=== PATIENT | female | born 1955 | race Caucasian/White ===

== ENCOUNTER 2017-05-06 16:46 | Inpatient (IN) | payer BC ==
[~2017-05-06] VITALS: Ht 157.5 cm; Wt 56.8 kg
[~2017-05-06 16:46] MED LIST: AMIO100T4 PO; ANAS1TAB PO; BENA40TA54 PO; CEPH500C PO; LEVO50TA64 PO; METO-448 PO; MIRT7.5T8 PO; SERT25TA83 PO; SIMV40TA2 PO; WARF2TAB PO
[2017-05-06] MEDS ORDERED: SODIUM CHLORIDE 0.9% 1L BAG IV* STA (20:15)
[2017-05-06] MEDS ORDERED: AZTREONAM 1 GM/NS (PMX) 50 ML IVPB STA (20:15)
[2017-05-06] MEDS ORDERED: VANCOMYCIN 1 GM (PMX) 250 ML IVPB ONE (20:30)
--- NOTE | 2017-05-06 21:18 | RADRPT ---
PROCEDURE: XR Chest. CLINICAL INDICATION: Chest pain TECHNIQUE: Single frontal view of the chest was obtained. COMPARISON: CR CHEST 12/15/2015 FINDINGS: The heart is within normal limits. The thoracic aorta is calcified. There are surgical clips in the right axilla. The lungs are clear. There is no pleural effusion or pneumothorax. RPTAT: AA IMPRESSION: No acute disease. Calcified aorta consistent with atherosclerotic disease. .Lorenzo Kinsey MD, MD Date Time Electronically viewed and signed by .Lorenzo Kinsey MD, on 05/06/2017 21:17 .S/
[2017-05-06] MEDS ORDERED: ACET-141 PO (21:46)
[2017-05-06] MEDS ORDERED: MIRT15TA5 PO (21:46)
[2017-05-06] MEDS ORDERED: AMIO200T2 PO (21:46)
[2017-05-06] MEDS ORDERED: LEVO75TA5 PO (21:47)
[2017-05-06 22:28] LABS: BASOPHIL # 0.1 10^3/ul (0.0-0.1); BASOPHILS % 0.6 % (0.0-2.0); EOSINOPHILS % 0.1 % (0.0-7.0); HEMATOCRIT 36.4 % (37.0-47.0); LYMPHOCYTES # 0.9 10^3/ul (0.8-2.9); LYMPHOCYTES % 10.7 % (15.0-51.0); MEAN CORPUSCULAR HEMOGLOBIN 28.2 pg (29.0-33.0); MEAN CORPUSCULAR VOLUME 85.6 fl (82.0-101.0); MEAN PLATELET VOLUME 11.7 fl (7.4-10.4); MONOCYTE # 0.8 10^3/ul (0.3-0.9); MONOCYTES % 8.7 % (0.0-11.0); NEUTROPHIL # 6.9 10^3/ul (1.6-7.5); NEUTROPHILS % 79.3 % (39.0-77.0); RED BLOOD COUNT 4.25 10^6/ul (4.20-5.40); RED CELL DISTRIBUTION WIDTH 13.2 % (11.5-14.5); WHITE BLOOD COUNT 8.7 10^3/ul (4.8-10.8)
[2017-05-06 22:31] LABS: POSITIVE DIFF @See below
[2017-05-06 22:56] LABS: TROPONIN-I 0.022 ng/ml (0.00-0.12)
[2017-05-06 23:22] LABS: BILIRUBIN,INDIRECT 0.3 mg/dl (0-1.1); BILIRUBIN,TOTAL 0.3 mg/dl (0.2-1.3); CALCIUM 9.3 mg/dl (8.4-10.2); CREATININE 0.52 mg/dl (0.44-1.00); POTASSIUM 4.3 mmol/L (3.5-5.1)
[2017-05-06 23:28] LABS: PLATELET COUNT 227 10^3/UL (140-415)
[2017-05-06] MEDS ORDERED: ACETAMINOPHEN 325 MG TAB PO PRN (23:30)
[2017-05-06] MEDS ORDERED: ONDANSETRON 4 MG INJ IV PRN (23:30)
[2017-05-06 23:31] LABS: INR 1.76; PROTIME 20.7 Sec (12.2-14.2); PT RATIO 1.6
--- NOTE | 2017-05-06 23:51 | ERD ---
ER Documentation Chief Complaint Chief Complaint ap with n/v and constipation; htn; symptoms x 1 week HPI Patient is a 61-year-old female with breast cancer and previous cardiac arrest who presents with high blood pressure. The patient has been told she has a UTI and she gets frequent UTIs. She has had constipation for the past 6-7 days. She has had decreased intake by mouth and vomiting. She feels "dehydrated and pale". She feels weak all over. Upon review of old medical records this is the patient's 10th visit to the ER since 2009. Her primary doctor is Dr. Garduno. ROS All systems reviewed and are negative except as per history of present illness. Medications Home Meds Active Scripts Metoprolol Tartrate* (Lopressor*) 25 Mg Tab, 12.5 MG PO BID, #60 TAB Prov:COCO COBOS MD 12/16/15 Reported Medications Levothyroxine Sodium* (Levothyroxine Sodium*) 75 Mcg Tablet, 75 MCG PO BEFORE BREAKFAST, #30 TAB 05/06/17 Acetaminophen* (Acetaminophen*) 500 MG Extra Strength Tablet, 500 MG PO Q4H Y for PAIN AND OR ELEVATED TEMP, TAB 05/06/17 Mirtazapine* (Mirtazapine*) 15 Mg Tablet, 15 MG PO HS, TAB 05/06/17 Amiodarone Hcl* (Amiodarone Hcl*) 200 Mg Tablet, 100 MG PO QAM, #30 TAB TAKE 1/2 TABLET PO DAILY 05/06/17 Warfarin Sodium* (Coumadin*) 2 Mg Tablet, 2 MG PO QAM, TAB 12/15/15 Simvastatin* (Zocor*) 40 Mg Tablet, 40 MG PO QHS, #30 TAB 12/15/15 Sertraline Hcl* (Sertraline Hcl*) 25 Mg Tablet, 25 MG PO QHS 07/18/13 Anastrozole* (Arimidex*) 1 Mg Tablet, 1 MG PO DAILY 07/18/13 Benazepril Hcl* (Lotensin*) 40 Mg Tablet, 40 MG PO DAILY 07/18/13 Discontinued Reported Medications Mirtazapine* (Mirtazapine*) 7.5 Mg Tablet, 7.5 MG PO HS, TAB 12/15/15 Levothyroxine Sodium (Levothroid) 50 Mcg Tablet, 50 MCG PO AC BREAKFAST 07/18/13 Discontinued Scripts Cephalexin* (Cephalexin*) 500 Mg Capsule, 500 MG PO Q8, #21 CAP Prov:COCO COBOS MD 12/16/15 Amiodarone Hcl* (Amiodarone Hcl*) 100 Mg Tablet, 100 MG PO DAILY, #30 TAB Prov:COCO COBOS MD 12/16/15 Allergies Allergies: Coded Allergies: Penicillins (Unverified Allergy, Mild, RASH HIVES, 05/06/17) PMhx/Soc History of Surgery: Yes (right Mastectomy; Trache, G-Tube) Anesthesia Reaction: No Hx Neurological Disorder: No Hx Respiratory Disorders: No Hx Cardiac Disorders: Yes (Irregular Heart Rate) Hx Psychiatric Problems: Yes Hx Miscellaneous Medical Probl: Yes (cardiac arrest) Hx Alcohol Use: No Hx Substance Use: No Hx Tobacco Use: No Smoking Status: Never smoker Physical Exam Vitals Vital Signs Date Time Temp Pulse Resp B/P Pulse Ox O2 Delivery O2 Flow Rate FiO2 05/06/17 22:45 60 180/73 98 Room Air 05/06/17 17:14 99.0 56 18 208/87 98 Physical Exam Const: [] Head: Atraumatic Eyes: Normal Conjunctiva ENT: Normal External Ears, Nose and Mouth. Neck: Full range of motion..~ No meningismus. Resp: Clear to auscultation bilaterally Cardio: Regular rate and rhythm, no murmurs Abd: Soft, non tender, non distended. Normal bowel sounds Skin: No petechiae or rashes Back: No midline or flank tenderness Ext: No cyanosis, or edema Neur: Awake and alert Psych: Normal Mood and Affect Result Diagram: 05/06/17221305/06/172213 Results 24 hrs Laboratory Tests Test 05/06/17 22:14 05/06/17 22:30 White Blood Count 8.710^3/ul Red Blood Count 4.2510^6/ul Hemoglobin 12.0g/dl Hematocrit 36.4% Mean Corpuscular Volume 85.6fl Mean Corpuscular Hemoglobin 28.2pg Mean Corpuscular Hemoglobin Concent 33.0g/dl Red Cell Distribution Width 13.2% Platelet Count 50817^3/UL Mean Platelet Volume 11.7fl Neutrophils % 79.3% Lymphocytes % 10.7% Monocytes % 8.7% Eosinophils % 0.1% Basophils % 0.6% Nucleated Red Blood Cells % 0.0/100WBC Neutrophils # 6.910^3/ul Lymphocytes # 0.910^3/ul Monocytes # 0.810^3/ul Eosinophils # 0.010^3/ul Basophils # 0.110^3/ul Nucleated Red Blood Cells # 0.010^3/ul Sodium Level 142mmol/L Potassium Level 4.3mmol/L Chloride Level 102mmol/L Carbon Dioxide Level 28mmol/L Anion Gap 16 Blood Urea Nitrogen 8mg/dl Creatinine 0.52mg/dl Glucose Level 119mg/dl Lactic Acid Level 2.0mmol/L Calcium Level 9.3mg/dl Total Bilirubin 0.3mg/dl Direct Bilirubin 0.00mg/dl Indirect Bilirubin 0.3mg/dl Aspartate Amino Transf (AST/SGOT) 31IU/L Alanine Aminotransferase (ALT/SGPT) 16IU/L Alkaline Phosphatase 101IU/L Troponin I 0.022ng/ml Total Protein 8.0g/dl Albumin 4.0g/dl Globulin 4.00g/dl Albumin/Globulin Ratio 1.00 Prothrombin Time 20.7Sec Prothrombin Time Ratio 1.6 INR International Normalized Ratio 1.76 Activated Partial Thromboplast Time 33.0Sec Current Medications Medications (Trade) Dose Ordered Sig/Barb Route PRN Reason Start Time Stop Time Status Last Admin Dose Admin Sodium Chloride 1760 ml 1,760 ml BOLUS OVER 2 HOURS STAT IV* 05/06/17 20:15 05/06/17 20:16 DC 05/06/17 20:15 Vancomycin HCl 250 ml @ 125 mls/hr ONCE ONCE IVPB 05/06/17 20:30 05/06/17 22:29 DC Aztreonam (Azactam 1gm/NS (Pmx)) 50 ml @ 100 mls/hr ONCE STAT IVPB 05/06/17 20:15 05/06/17 20:44 DC 05/06/17 20:15 Ondansetron HCl (Zofran Inj) 4 mg BRIDGE ORDER PRN IV NAUSEA AND/OR VOMITING 05/06/17 23:30 05/07/17 23:29 Acetaminophen (Tylenol Tab) 650 mg ER BRIDGE PRN PO MILD PAIN/FEVER 05/06/17 23:30 05/07/17 23:29 Procedures/MDM Patient is a 61-year-old female presents with high blood pressure, weakness, and dehydration. Laboratory studies are basically normal. Urinalysis is pending at this time. The patient was given fluids and broad-spectrum antibiotics in case there is a UTI. At this point however I doubt sepsis. doubt acute coronary syndrome. I doubt pneumonia. The patient will be admitted to the care of Dr. Montes De Oca from the panel team to a medical surgical bed for further treatment. Departure Diagnosis: Primary Impression: Weakness Additional Impression: Dehydration Condition: JANET Swann MD May 06, 2017 23:51
[2017-05-07] VITALS (7 sets, daily range): BP systolic 130–201; BP diastolic 57–87; PULSE 72–78; RESP 16–18; Ht 157.5 cm; Wt 56.8 kg
[2017-05-07] MEDS ORDERED: hydrALAzine 20 MG INJ ONE (00:26)
[2017-05-07] MEDS ORDERED: hydrALAzine 20 MG INJ IV ONE (00:30)
[2017-05-07] MEDS ORDERED: ONDANSETRON 4 MG INJ IV PRN (02:00)
[2017-05-07] MEDS ORDERED: morphine 2 MG INJ IV PRN (02:00)
[2017-05-07] MEDS ORDERED: BENAZEPRIL 40 MG TAB PO ONE (02:00)
[2017-05-07] MEDS ORDERED: ACETAMINOPHEN 500 MG TAB PO PRN (02:00)
[2017-05-07] MEDS: hydrALAzine 20 MG INJ IV PRN ×2 (02:09→06:33)
[2017-05-07] MEDS ORDERED: METHYLPREDNISOLONE 125 MG INJ IV ONE (03:00)
[2017-05-07 06:07] LABS: BASOPHILS % 0.4 % (0.0-2.0); EOSINOPHILS % 0.1 % (0.0-7.0); HEMATOCRIT 35.5 % (37.0-47.0); HEMOGLOBIN 12.2 g/dl (12.0-16.0); LYMPHOCYTES # 0.7 10^3/ul (0.8-2.9); LYMPHOCYTES % 7.2 % (15.0-51.0); MEAN CORPUSCULAR HEMOGLOBIN 29.5 pg (29.0-33.0); MEAN CORPUSCULAR HGB CONC 34.4 g/dl (32.0-37.0); MONOCYTE # 0.4 10^3/ul (0.3-0.9); MONOCYTES % 3.5 % (0.0-11.0); NEUTROPHIL # 8.7 10^3/ul (1.6-7.5); NEUTROPHILS % 88.1 % (39.0-77.0); PLATELET COUNT 320 10^3/UL (140-415); RED BLOOD COUNT 4.13 10^6/ul (4.20-5.40); WHITE BLOOD COUNT 9.9 10^3/ul (4.8-10.8)
[2017-05-07 06:13] LABS: ADD UMIC YES; UR ASCORBIC ACID NEGATIVE (NEGATIVE); UR BACTERIA FEW /HPF (NONE SEEN); UR BILIRUBIN (Dip) NEGATIVE (NEGATIVE); UR BLOOD (Dip) 1+ mg/dL (NEGATIVE); UR CLARITY CLEAR (CLEAR); UR COLOR YELLOW (YELLOW); UR GLUCOSE (Dip) NEGATIVE (NEGATIVE); UR KETONES (Dip) TRACE mg/dL (NEGATIVE); UR LEUKOCYTE ESTERASE (Dip) NEGATIVE Leu/ul (NEGATIVE); UR MUCUS FEW /HPF (NONE SEEN); UR NITRITE (Dip) NEGATIVE (NEGATIVE); UR RBC 6 /HPF (0-5); UR SPECIFIC GRAVITY (Dip) 1.009 (1.003-1.030); UR TOTAL PROTEIN (Dip) NEGATIVE (NEGATIVE); UR UROBILINOGEN (Dip) 2+ mg/dL (NEGATIVE)
--- NOTE | 2017-05-07 06:22 | HP ---
Date/Time of Note Date/Time of Note DATE: 05/07/17 TIME: 06:08 Assessment/Plan VTE Prophylaxis VTE Prophylaxis Intervention: heparin Lines/Catheters IV C[facility]ter Type (from [facility]): [facility] Urinary Cath still in place: No Assessment/Plan Assessment/Plan ASSESSMENT 61-year-old female with a history of hypertension, breast cancer status post right sided mastectomy, on Arimidex, paroxysmal atrial fibrillation, history of cardiopulmonary arrest in 2008 resulting in anoxic brain injury was brought to the ER by family for vomiting, lethargy and foul-smelling urine most likely secondary to UTI. Patient also with no BM for about 6 days. On presentation, she was in hypertensive crisis with a SBP of 208. PLAN Patient's main symptoms are most likely a result of UTI. Will send urine for UA and urine culture. Will empirically start on antibiotic given the foul- smelling urine. She will receive IV fluids. Will continue antihypertensives with adjustment as needed for better BP control. She will have formal swallow evaluation, then will resume her home medications including her Arimidex. Will check KUB given constipation X 6 days. Supportive care HPI/ROS Admit Date/Time Admit Date/Time May 06, 2017 at 23:21 Hx of Present Illness This is a 61-year-old female with a history of hypertension, breast cancer status post right sided mastectomy, on Arimidex, paroxysmal atrial fibrillation , hypothyroidism, history of cardiac arrest in 2008 resulting in anoxic brain injury, history of prior tracheostomy and PEG tube placement. Patient was brought to ER by family because of generalized weakness, vomiting, decreased p.o. intake and constipation. Patient has anoxic brain injury as a result of the cardiac arrest in 2008 and as a result she is entirely dependent with her family. Her daughter who is at the bedside stated that starting about a week ago, they noticed that she was becoming more lethargic and yesterday she has had 2 episodes of nonbloody nonbilious vomiting. She also has not had a bowel movement for about 6 days. Daughter also noticed foul-smelling urine. When she presented to the ER, blood pressure was 208/87 with a heart rate of 56. She has been afebrile. CBC and CMP was in acceptable range. Chest x-ray was no acute cardiopulmonary disease. Urinalysis was not done in the ER. PMH/Family/Social Social History Smoking Status: Never smoker Exam/Review of Systems Vital Signs Vitals Vital Signs Date Time Temp Pulse Resp B/P Pulse Ox O2 Delivery O2 Flow Rate FiO2 05/07/17 04:25 72 177/74 05/07/17 01:40 99.3 18 97 05/06/17 22:45 Room Air Exam Constitutional: other (In deep sleep, not fully arousable.) Head: atraumatic, normocephalic Respiratory: clear to auscultation Cardiovascular: nl pulses, regular rate and rhythm Gastrointestinal: soft Extremities: normal pulses Additional Comments Right breast mastectomy Labs Result Diagram: 05/06/174 05/06/174 Medications Medications Current Medications Hydralazine HCl (Apresoline) 10 mg Q4H PRN IV SBP ABOVE 160 Last administered on 05/07/17t 02:09; Admin Dose 10 MG; Start 05/07/17 at 02:00 Ondansetron HCl (Zofran Inj) 4 mg Q6H PRN IV NAUSEA AND/OR VOMITING; Start 05/07/17 at 02:00 Morphine Sulfate (morphine) 2 mg Q4H PRN IV PAIN; Start 05/07/17 at 02:00 Acetaminophen (Tylenol Tab) 500 mg Q4H PRN PO PAIN AND OR ELEVATED TEMP; Start 05/07/17 at 02:00 Amiodarone HCl (Cordarone) 100 mg QAM PO ; Start 05/07/17 at 09:00 Anastrozole (Arimidex) 1 mg DAILY PO ; Start 05/07/17 at 09:00 Benazepril HCl (Lotensin) 40 mg DAILY PO ; Start 05/07/17 at 09:00 Metoprolol Tartrate (Lopressor) 12.5 mg BID PO ; Start 05/07/17 at 09:00 Mirtazapine (Remeron) 15 mg HS PO ; Start 05/07/17 at 21:00 Sertraline HCl (Zoloft) 25 mg QHS PO ; Start 05/07/17 at 21:00 Warfarin Sodium (Coumadin) 2 mg DAILY@17 PO ; Start 05/07/17 at 17:00 Influenza Virus Vaccine (Fluzone) 0.5 ml ONCE ONCE IM* ; Start 05/09/17 at 09: 00; Stop 05/09/17 at 09:01 WEN CHEN MD May 07, 2017 06:21
[2017-05-07 06:34] LABS: ALBUMIN 4.1 g/dl (3.3-4.9); ALBUMIN/GLOBULIN RATIO 1.02; BILIRUBIN,INDIRECT 0.5 mg/dl (0-1.1); BILIRUBIN,TOTAL 0.5 mg/dl (0.2-1.3); CALCIUM 8.5 mg/dl (8.4-10.2); CREATININE 0.43 mg/dl (0.44-1.00); TOTAL PROTEIN 8.1 g/dl (6.1-8.1)
[2017-05-07] MEDS: LEVOTHYROXINE 75 MCG TAB PO SCH (06:41)
[2017-05-07] MEDS: DEXTROSE 5%-0.45% NACL 1,000 ML IV SCH ×3 (08:24→21:01)
[2017-05-07] MEDS: CIPROFLOXACIN 400MG/D5W 200 ML IVPB SCH ×2 (08:24→21:00)
[2017-05-07] MEDS: BENAZEPRIL 40 MG TAB PO SCH (08:25)
[2017-05-07] MEDS: METOPROLOL 25 MG TAB PO SCH ×2 (08:27→21:04)
[2017-05-07] MEDS: AMIODARONE 200 MG TAB PO SCH (08:28)
[2017-05-07] MEDS: AMLODIPINE 10 MG TAB PO SCH (08:28)
[2017-05-07] MEDS: ANASTROZOLE 1 MG TAB PO SCH (08:31)
--- NOTE | 2017-05-07 15:02 | PN ---
Date/Time of Note Date/Time of Note DATE: 05/07/17 TIME: 15:00 Assessment/Plan VTE Prophylaxis VTE Prophylaxis Intervention: SCD's Lines/Catheters IV C[facility]ter Type (from [facility]): [facility] Urinary Cath still in place: No Assessment/Plan Chief Complaint/Hosp Course Assessment and plan 1. UTI. Continue with antibiotics. Continue with IV hydration. Follow-up on urine culture. 2. Constipation. Follow-up on KUB. Will provide with laxatives as needed. 3. History of right-sided breast cancer on Arimidex. Continue regimen for now. Patient for outpatient follow-up for this issue. 4. Hypertension. Continue antihypertensives and is as needed. 5. Hypothyroidism. Continue on Synthroid 6. History of atrial fibrillation. Continuing Coumadin Disposition and plan: Follow-up and urine cultures. Continue with antibiotics. Monitor for improvement. Discussed plan of care with Dr. Brandt Problems: Subjective 24 Hr Interval Summary Free Text/Dictation Nonverbal. No signs of pain or distress Exam/Review of Systems Vital Signs Vitals Vital Signs Date Time Temp Pulse Resp B/P Pulse Ox O2 Delivery O2 Flow Rate FiO2 05/07/17 14:11 98.5 64 16 148/67 95 05/06/17 22:45 Room Air Intake and Output 05/06/17 05/06/17 05/07/17 15:00 23:00 07:00 Intake Total 180 ml Balance 180 ml Exam Constitutional: alert, non-verbal Neck: non-tender, supple Respiratory: clear to auscultation, normal air movement Cardiovascular: regular rate and rhythm Gastrointestinal: non-tender, soft Musculoskeletal: No swelling Neurological: other (Nonverbal. Alert to verbal stimulus) Results Result Diagram: 05/07/17 0551 05/07/17 0504 Results 24 hrs Laboratory Tests Test 05/06/17 22:14 05/06/17 22:30 05/07/17 05:00 05/07/17 05:04 White Blood Count 8.7 # Red Blood Count 4.25 Hemoglobin 12.0 Hematocrit 36.4 L Mean Corpuscular Volume 85.6 Mean Corpuscular Hemoglobin 28.2 L Mean Corpuscular Hemoglobin Concent 33.0 Red Cell Distribution Width 13.2 Platelet Count 227 Mean Platelet Volume 11.7 H Neutrophils % 79.3 H Lymphocytes % 10.7 L Monocytes % 8.7 Eosinophils % 0.1 Basophils % 0.6 Nucleated Red Blood Cells % 0.0 Neutrophils # 6.9 Lymphocytes # 0.9 Monocytes # 0.8 Eosinophils # 0.0 Basophils # 0.1 Nucleated Red Blood Cells # 0.0 Sodium Level 142 139 Potassium Level 4.3 4.0 Chloride Level 102 104 Carbon Dioxide Level 28 24 Anion Gap 16 15 Blood Urea Nitrogen 8 5 L Creatinine 0.52 0.43 L Glucose Level 119 134 Lactic Acid Level 2.0 Calcium Level 9.3 8.5 Total Bilirubin 0.3 0.5 Direct Bilirubin 0.00 0.00 Indirect Bilirubin 0.3 0.5 Aspartate Amino Transf (AST/SGOT) 31 31 Alanine Aminotransferase (ALT/SGPT) 16 19 Alkaline Phosphatase 101 90 Troponin I 0.022 Total Protein 8.0 8.1 Albumin 4.0 4.1 Globulin 4.00 H 4.00 H Albumin/Globulin Ratio 1.00 1.02 Prothrombin Time 20.7 H Prothrombin Time Ratio 1.6 INR International Normalized Ratio 1.76 Activated Partial Thromboplast Time 33.0 Urine Color YELLOW Urine Clarity CLEAR Urine pH 7.0 Urine Specific [place] 1.009 Urine Ketones TRACE A Urine Nitrite NEGATIVE Urine Bilirubin NEGATIVE Urine Urobilinogen 2+ H Urine Leukocyte Esterase NEGATIVE Urine Microscopic RBC 6 H Urine Microscopic WBC 7 H Urine Bacteria FEW A Urine Mucus FEW A Urine Hemoglobin 1+ H Urine Glucose NEGATIVE Urine Total Protein NEGATIVE Test 05/07/17 05:51 White Blood Count 9.9 Red Blood Count 4.13 L Hemoglobin 12.2 Hematocrit 35.5 L Mean Corpuscular Volume 86.0 Mean Corpuscular Hemoglobin 29.5 Mean Corpuscular Hemoglobin Concent 34.4 Red Cell Distribution Width 13.0 Platelet Count 320 # Mean Platelet Volume 11.0 H Neutrophils % 88.1 H Lymphocytes % 7.2 L Monocytes % 3.5 Eosinophils % 0.1 Basophils % 0.4 Nucleated Red Blood Cells % 0.0 Neutrophils # 8.7 H Lymphocytes # 0.7 L Monocytes # 0.4 Eosinophils # 0.0 Basophils # 0.0 Nucleated Red Blood Cells # 0.0 Medications Medications Current Medications Hydralazine HCl (Apresoline) 10 mg Q4H PRN IV SBP ABOVE 160 Last administered on 05/07/17t 06:33; Admin Dose 10 MG; Start 05/07/17 at 02:00 Ondansetron HCl (Zofran Inj) 4 mg Q6H PRN IV NAUSEA AND/OR VOMITING; Start 05/07/17 at 02:00 Morphine Sulfate (morphine) 2 mg Q4H PRN IV PAIN; Start 05/07/17 at 02:00 Acetaminophen (Tylenol Tab) 500 mg Q4H PRN PO PAIN AND OR ELEVATED TEMP; Start 05/07/17 at 02:00 Amiodarone HCl (Cordarone) 100 mg QAM PO Last administered on 05/07/17 08:28; Admin Dose 100 MG; Start 05/07/17 at 09:00 Anastrozole (Arimidex) 1 mg DAILY PO Last administered on 05/07/17 08:31; Admin Dose 1 MG; Start 05/07/17 at 09:00 Benazepril HCl (Lotensin) 40 mg DAILY PO Last administered on 05/07/17 08:25; Admin Dose 40 MG; Start 05/07/17 at 09:00 Metoprolol Tartrate (Lopressor) 12.5 mg BID PO Last administered on 05/07/17 08:27; Admin Dose 12.5 MG; Start 05/07/17 at 09:00 Mirtazapine (Remeron) 15 mg HS PO ; Start 05/07/17 at 21:00 Sertraline HCl (Zoloft) 25 mg QHS PO ; Start 05/07/17 at 21:00 Warfarin Sodium (Coumadin) 2 mg DAILY@17 PO ; Start 05/07/17 at 17:00 Influenza Virus Vaccine 0.5 ml 0.5 ml ONCE ONCE IM* ; Start 05/09/17 at 09:00; Stop 05/09/17 at 09:01 Ciprofloxacin/ Dextrose 200 ml @ 200 mls/hr Q12 IVPB Last administered on 05/07 08:24; Admin Dose 200 MLS/HR; Start 05/07/17 at 09:00 Dextrose/Sodium Chloride (D5-1/2ns) 1,000 ml @ 100 mls/hr Q10H IV Last administered on 05/07/17 08:24; Admin Dose 100 MLS/HR; Start 05/07/17 at 07:30 Atorvastatin Calcium (Lipitor) 20 mg DAILY@21 PO ; Start 05/07/17 at 21:00 Amlodipine Besylate (Norvasc) 10 mg DAILY PO Last administered on 05/07/17 08: 28; Admin Dose 10 MG; Start 05/07/17 at 09:00 IDALIA ROMAN May 07, 2017 15:02
--- NOTE | 2017-05-07 16:28 | RADRPT ---
PROCEDURE: XR Abdomen. CLINICAL INDICATION: Abdomen pain. TECHNIQUE: AP supine abdomen x-ray. COMPARISON: None. FINDINGS: The bowel gas pattern is normal with no evidence of obstruction. There is an irregular calcification in the right side of the pelvis which may be due to an ovarian d ermoid. There are no abnormal calcifications overlying the urinary tracts. There are degenerative changes of the spine. IMPRESSION: 1. No evidence of obstruction. 2. Irregular calcification in the right side of the pelvis which may be due to an ovarian dermoid. Correlation with pelvic ultrasound advised. 3. Degenerative changes of the spine. 4. Otherwise unremarkable study. RPTAT: QQ .Carl Osuna MD, MD Date Time Electronically viewed and signed by .Carl sOuna MD, MD on 05/07/2017 16:27 .R/
[2017-05-07] MEDS: WARFARIN 2 MG TAB PO SCH (17:52)
[2017-05-07] MEDS: MIRTAZAPINE 15 MG TAB PO SCH (21:00)
[2017-05-07] MEDS: SERTRALINE 50 MG TAB PO SCH (21:03)
[2017-05-07] MEDS: ATORVASTATIN 20 MG TAB PO SCH (21:04)
[2017-05-08 02:19] VITALS: BP 145/63; RESP 18
[2017-05-08] MEDS: LEVOTHYROXINE 75 MCG TAB PO SCH (06:01)
[2017-05-08 06:33] LABS: INR 2.5; PROTIME 27.3 Sec (12.2-14.2); PT RATIO 2.1
[2017-05-08 06:34] LABS: PARTIAL THROMBOPLASTIN TIME 36.7 Sec (25.0-35.0)
[2017-05-08 08:29] VITALS: BP 110/58; RESP 18
[2017-05-08] MEDS: CIPROFLOXACIN 400MG/D5W 200 ML IVPB SCH ×2 (09:17→21:10)
[2017-05-08] MEDS: AMLODIPINE 10 MG TAB PO SCH (09:26)
[2017-05-08] MEDS: AMIODARONE 200 MG TAB PO SCH (09:26)
[2017-05-08] MEDS: METOPROLOL 25 MG TAB PO SCH ×2 (09:27→21:13)
[2017-05-08] MEDS: BENAZEPRIL 40 MG TAB PO SCH (09:27)
[2017-05-08] MEDS: ANASTROZOLE 1 MG TAB PO SCH (09:29)
[2017-05-08] MEDS: DEXTROSE 5%-0.45% NACL 1,000 ML IV SCH ×3 (09:36→23:30)
[2017-05-08] MEDS ORDERED: LACTULOSE 30ML CUP PO PRN (12:30)
[2017-05-08] MEDS ORDERED: NA PHOSPHATE/BIPHOS 133 ML ENEMA PR PRN (12:30)
--- NOTE | 2017-05-08 14:54 | PN ---
Date/Time of Note Date/Time of Note DATE: 05/08/17 TIME: 14:53 Assessment/Plan VTE Prophylaxis VTE Prophylaxis Intervention: SCD's Lines/Catheters IV [facility] (from [facility] Urinary Cath still in place: No Assessment/Plan Chief Complaint/Hosp Course Assessment and plan 1. UTI. Continue with antibiotics. Continue with IV hydration. Urine culture so far negative 2. Constipation. KUB showing no obstruction. Still with reported bowel movement since April 30, 2017. Will provide with a regimen 3. History of right-sided breast cancer on Arimidex. Continue regimen for now. Patient for outpatient follow-up for this issue. 4. Hypertension. Continue antihypertensives and is as needed. 5. Hypothyroidism. Continue on Synthroid 6. History of atrial fibrillation. Continuing Coumadin Disposition and plan: Appears to be improving at present. Afebrile. Speech therapy did see the patient. Will resume diet per recommendations. Still with no reported bowel movement. Will place on regimen for now. Anticipate discharge within the next 24 hours if medically stable Discussed plan of care with Dr. Brandt Problems: Subjective 24 Hr Interval Summary Free Text/Dictation no s/s of distress. remains nonverbal Exam/Review of Systems Vital Signs Vitals Vital Signs Date Time Temp Pulse Resp B/P Pulse Ox O2 Delivery O2 Flow Rate FiO2 05/08/17 08:29 98.3 57 18 110/58 97 05/06/17 22:45 Room Air Intake and Output 05/07/17 05/07/17 05/08/17 15:00 23:00 07:00 Intake Total 200 ml 200 ml 800 ml Balance 200 ml 200 ml 800 ml Exam Constitutional: alert, non-verbal Neck: non-tender, supple Respiratory: clear to auscultation, normal air movement Cardiovascular: regular rate and rhythm Gastrointestinal: non-tender, soft Musculoskeletal: No swelling Neurological: other (Nonverbal. Alert to verbal stimulus) Results Result Diagram: 05/07/17 0551 05/07/17 0504 Results 24 hrs Laboratory Tests Test 05/08/17 06:00 Prothrombin Time 27.3 #H Prothrombin Time Ratio 2.1 INR International Normalized Ratio 2.50 Activated Partial Thromboplast Time 36.7 H Medications Medications Current Medications Hydralazine HCl (Apresoline) 10 mg Q4H PRN IV SBP ABOVE 160 Last administered on 05/07/17t 06:33; Admin Dose 10 MG; Start 05/07/17 at 02:00 Ondansetron HCl (Zofran Inj) 4 mg Q6H PRN IV NAUSEA AND/OR VOMITING; Start 05/07/17 at 02:00 Morphine Sulfate (morphine) 2 mg Q4H PRN IV PAIN; Start 05/07/17 at 02:00 Acetaminophen (Tylenol Tab) 500 mg Q4H PRN PO PAIN AND OR ELEVATED TEMP; Start 05/07/17 at 02:00 Amiodarone HCl (Cordarone) 100 mg QAM PO Last administered on 05/08/17 09:26; Admin Dose 100 MG; Start 05/07/17 at 09:00 Anastrozole (Arimidex) 1 mg DAILY PO Last administered on 05/08/17 09:29; Admin Dose 1 MG; Start 05/07/17 at 09:00 Benazepril HCl (Lotensin) 40 mg DAILY PO Last administered on 05/08/17 09:27; Admin Dose 40 MG; Start 05/07/17 at 09:00 Metoprolol Tartrate (Lopressor) 12.5 mg BID PO Last administered on 05/08/17 09:27; Admin Dose 12.5 MG; Start 05/07/17 at 09:00 Mirtazapine (Remeron) 15 mg HS PO ; Start 05/07/17 at 21:00 Sertraline HCl (Zoloft) 25 mg QHS PO Last administered on 05/07/17 21:03; Admin Dose 25 MG; Start 05/07/17 at 21:00 Warfarin Sodium (Coumadin) 2 mg DAILY@17 PO Last administered on 05/07/17 17: 52; Admin Dose 2 MG; Start 05/07/17 at 17:00 Influenza Virus Vaccine 0.5 ml 0.5 ml ONCE ONCE IM* ; Start 05/09/17 at 09:00; Stop 05/09/17 at 09:01 Ciprofloxacin/ Dextrose 200 ml @ 200 mls/hr Q12 IVPB Last administered on 05/08 09:17; Admin Dose 200 MLS/HR; Start 05/07/17 at 09:00 Dextrose/Sodium Chloride (D5-1/2ns) 1,000 ml @ 100 mls/hr Q10H IV Last administered on 05/08/17 09:36; Admin Dose 100 MLS/HR; Start 05/07/17 at 07:30 Atorvastatin Calcium (Lipitor) 20 mg DAILY@21 PO Last administered on 21:04; Admin Dose 20 MG; Start 05/07/17 at 21:00 Amlodipine Besylate (Norvasc) 10 mg DAILY PO Last administered on 05/08/17 09: 26; Admin Dose 10 MG; Start 05/07/17 at 09:00 Lactulose (Enulose) 20 gm Q6H PRN PO CONSTIPATION; Start 05/08/17 at 12:30 Sodium Biphosphate/ Sodium Phosphate (Fleet Enema) 133 ml DAILY PRN [place] CONSTIPATION; Start 05/08/17 at 12:30 IDALIA ROMAN May 08, 2017 14:54
[2017-05-08 15:50] VITALS: BP 148/66; RESP 18
[2017-05-08] MEDS: WARFARIN 2 MG TAB PO SCH (17:41)
[2017-05-08 20:24] VITALS: BP 169/74; RESP 18
[2017-05-08] MEDS: MIRTAZAPINE 15 MG TAB PO SCH (21:00)
[2017-05-08] MEDS: ATORVASTATIN 20 MG TAB PO SCH (21:10)
[2017-05-08] MEDS: SERTRALINE 50 MG TAB PO SCH (21:11)
[2017-05-09 02:22] VITALS: BP 191/77; RESP 16
[2017-05-09 06:16] LABS: BASOPHIL # 0.1 10^3/ul (0.0-0.1); BASOPHILS % 0.8 % (0.0-2.0); EOSINOPHILS # 0.2 10^3/ul (0.0-0.5); EOSINOPHILS % 3.3 % (0.0-7.0); HEMATOCRIT 32.3 % (37.0-47.0); HEMOGLOBIN 10.8 g/dl (12.0-16.0); LYMPHOCYTES % 27.3 % (15.0-51.0); MEAN CORPUSCULAR HGB CONC 33.4 g/dl (32.0-37.0); MEAN CORPUSCULAR VOLUME 86.8 fl (82.0-101.0); MEAN PLATELET VOLUME 10.9 fl (7.4-10.4); MONOCYTE # 1.1 10^3/ul (0.3-0.9); MONOCYTES % 15.2 % (0.0-11.0); NEUTROPHIL # 3.8 10^3/ul (1.6-7.5); PLATELET COUNT 294 10^3/UL (140-415); RED BLOOD COUNT 3.72 10^6/ul (4.20-5.40); RED CELL DISTRIBUTION WIDTH 13.2 % (11.5-14.5); WHITE BLOOD COUNT 7.2 10^3/ul (4.8-10.8)
[2017-05-09 06:52] LABS: INR 2.61; PROTIME 28.3 Sec (12.2-14.2); PT RATIO 2.2
[2017-05-09 06:59] LABS: CREATININE 0.49 mg/dl (0.44-1.00); POTASSIUM 3.5 mmol/L (3.5-5.1)
[2017-05-09] MEDS: LEVOTHYROXINE 75 MCG TAB PO SCH (07:42)
[2017-05-09 08:00] VITALS: BP 145/65; PULSE 63; RESP 18
[2017-05-09] MEDS ORDERED: INFLUENZA VIRUS VACCINE 0.5 ML (DISPENSING) IM* ONE (09:00)
[2017-05-09] MEDS: CIPROFLOXACIN 400MG/D5W 200 ML IVPB SCH ×2 (09:25→20:41)
[2017-05-09] MEDS: DEXTROSE 5%-0.45% NACL 1,000 ML IV SCH ×2 (09:32→20:40)
[2017-05-09 09:33] VITALS: BP 180/76; PULSE 56
[2017-05-09] MEDS: ANASTROZOLE 1 MG TAB PO SCH (09:47)
[2017-05-09] MEDS: BENAZEPRIL 40 MG TAB PO SCH (10:21)
[2017-05-09] MEDS: METOPROLOL 25 MG TAB PO SCH ×2 (10:22→20:43)
[2017-05-09] MEDS: AMLODIPINE 10 MG TAB PO SCH (10:23)
[2017-05-09] MEDS: AMIODARONE 200 MG TAB PO SCH (10:23)
--- NOTE | 2017-05-09 11:20 | PN ---
Date/Time of Note Date/Time of Note DATE: 05/09/17 TIME: 11:15 Assessment/Plan VTE Prophylaxis VTE Prophylaxis Intervention: other Lines/Catheters IV Catheter Type (from Nrs): Mid Line Urinary Cath still in place: No Assessment/Plan Chief Complaint/Hosp Course S: No distress vomiting pain fever. Family bedside assist in care plan O: Vital signs stable PE No pallor adenopathy Regular no murmur rub gallop Clear Bs + nontender nondistended no orgy No edema Assessment and plan 1. Nausea vomiting. Obstipation? Observe. Stable. Possible discharge post BM 2. Acute cystitis? Not a lot of organisms 3. Chronic anoxia. Consider DNR status 4. Chronic hypertension/white coat hypertension 5. Chronic hypothyroidism 6. Chronic A. fib, continue amiodarone and Coumadin 7. Chronic breast cancer status on her Arimidex 8. Pelvic fibroid? Consider pelvic ultrasound 7. Anemia appears asymptomatic Problems: Exam/Review of Systems Vital Signs Vitals Vital Signs Date Time Temp Pulse Resp B/P Pulse Ox O2 Delivery O2 Flow Rate FiO2 05/09/17 09:33 56 180/76 05/09/17 08:00 98.9 18 96 Room Air Intake and Output 05/08/17 05/08/17 05/09/17 15:00 23:00 07:00 Intake Total 400 ml 1680 ml 0 ml Balance 400 ml 1680 ml 0 ml Results Result Diagram: 05/09/17 0601 05/09/17 0601 Results 24 hrs Laboratory Tests Test 05/09/17 06:01 White Blood Count 7.2 # Red Blood Count 3.72 L Hemoglobin 10.8 L Hematocrit 32.3 L Mean Corpuscular Volume 86.8 Mean Corpuscular Hemoglobin 29.0 Mean Corpuscular Hemoglobin Concent 33.4 Red Cell Distribution Width 13.2 Platelet Count 294 Mean Platelet Volume 10.9 H Neutrophils % 53.0 Lymphocytes % 27.3 Monocytes % 15.2 H Eosinophils % 3.3 Basophils % 0.8 Nucleated Red Blood Cells % 0.0 Neutrophils # 3.8 Lymphocytes # 2.0 Monocytes # 1.1 H Eosinophils # 0.2 Basophils # 0.1 Nucleated Red Blood Cells # 0.0 Prothrombin Time 28.3 H Prothrombin Time Ratio 2.2 INR International Normalized Ratio 2.61 Sodium Level 142 Potassium Level 3.5 Chloride Level 106 Carbon Dioxide Level 28 Anion Gap 12 Blood Urea Nitrogen 3 L Creatinine 0.49 Glucose Level 111 Calcium Level 8.0 L Medications Medications Current Medications Hydralazine HCl (Apresoline) 10 mg Q4H PRN IV SBP ABOVE 160 Last administered on 05/07/17 06:33; Admin Dose 10 MG; Start 05/07/17 at 02:00 Ondansetron HCl (Zofran Inj) 4 mg Q6H PRN IV NAUSEA AND/OR VOMITING; Start 05/07/17 at 02:00 Morphine Sulfate (morphine) 2 mg Q4H PRN IV PAIN; Start 05/07/17 at 02:00 Acetaminophen (Tylenol Tab) 500 mg Q4H PRN PO PAIN AND OR ELEVATED TEMP; Start 05/07/17 at 02:00 Amiodarone HCl (Cordarone) 100 mg QAM PO Last administered on 05/09/17 10:23 ; Admin Dose 100 MG; Start 05/07/17 at 09:00 Anastrozole (Arimidex) 1 mg DAILY PO Last administered on 05/09/17 09:47; Admin Dose 1 MG; Start 05/07/17 at 09:00 Benazepril HCl (Lotensin) 40 mg DAILY PO Last administered on 05/09/17 10:21 ; Admin Dose 40 MG; Start 05/07/17 at 09:00 Metoprolol Tartrate (Lopressor) 12.5 mg BID PO Last administered on 05/09/17 10:22; Admin Dose 12.5 MG; Start 05/07/17 at 09:00 Mirtazapine (Remeron) 15 mg HS PO ; Start 05/07/17 at 21:00 Sertraline HCl (Zoloft) 25 mg QHS PO Last administered on 05/08/17 21:11; Admin Dose 25 MG; Start 05/07/17 at 21:00 Warfarin Sodium 2 mg 2 mg DAILY@17 PO Last administered on 05/08/17 17:41; Admin Dose 2 MG; Start 05/07/17 at 17:00 Ciprofloxacin/ Dextrose 200 ml @ 200 mls/hr Q12 IVPB Last administered on 09:25; Admin Dose 200 MLS/HR; Start 05/07/17 at 09:00 Dextrose/Sodium Chloride (D5-1/2ns) 1,000 ml @ 100 mls/hr Q10H IV Last administered on 05/09/17 09:32; Admin Dose 100 MLS/HR; Start 05/07/17 at 07:30 Atorvastatin Calcium (Lipitor) 20 mg DAILY@21 PO Last administered on 21:10; Admin Dose 20 MG; Start 05/07/17 at 21:00 Amlodipine Besylate (Norvasc) 10 mg DAILY PO Last administered on 05/09/17 10 :23; Admin Dose 10 MG; Start 05/07/17 at 09:00 Lactulose (Enulose) 20 gm Q6H PRN PO CONSTIPATION Last administered on 19:03; Admin Dose 20 GM; Start 05/08/17 at 12:30 Sodium Biphosphate/ Sodium Phosphate (Fleet Enema) 133 ml DAILY PRN [place] CONSTIPATION; Start 05/08/17 at 12:30 CALLI GREEN MD May 09, 2017 11:20
[2017-05-09] MEDS ORDERED: hydrALAzine 20 MG INJ IV PRN (11:30)
[2017-05-09] MEDS ORDERED: MINERAL OIL 133 ML ENEMA PR PRN (11:30)
[2017-05-09] MEDS: BISACODYL (EC) 5 MG TAB PO SCH (12:01)
[2017-05-09] MEDS: LACTULOSE 30ML CUP PO SCH ×2 (12:02→20:42)
[2017-05-09] MEDS: LEVOFLOXACIN 250 MG TAB PO SCH (12:56)
[2017-05-09 14:00] VITALS: BP 192/82; RESP 18
[2017-05-09] MEDS: WARFARIN 2 MG TAB PO SCH (18:01)
--- NOTE | 2017-05-09 19:11 | RADRPT ---
PROCEDURE: US Pelvis. CLINICAL INDICATION: Pelvic pain. TECHNIQUE: The pelvis was evaluated with transabdominal sonography in the axial and sagittal plane s. This is a limited study as the patient was unable to void and transvaginal sonography could not b e performed. COMPARISON: No prior study is available for comparison. FINDINGS: The uterus measures 6.0 x 2.1 x 3.8 cm. There is no uterine enlargement or mass. The endometrium is normal measuring 2.5 mm. The ovaries are not visualized. There is a posterior midline cyst measuring 7.5 x 6.7 x 10.7 cm. The cyst has thick estrada and a thin septation. There is no other pelvic mass or free fluid. IMPRESSION: 1. Limited study with transvaginal sonography not performed. 2. Normal uterus and endometrium. 3. Ovaries not visualized. 4. Posterior midline cyst measuring 7.5 x 6.7 x 10.7 cm. This may be due to an ovarian neoplasm. Gy necologic consultation is advised. 5. Otherwise unremarkable study. RPTAT: QQ .Carl Osuna MD, MD Date Time Electronically viewed and signed by .Carl Osuna MD, on 05/09/2017 19:11 .R/
[2017-05-09 20:09] VITALS: BP 157/68; RESP 20
[2017-05-09] MEDS: ATORVASTATIN 20 MG TAB PO SCH (20:43)
[2017-05-09] MEDS: SERTRALINE 50 MG TAB PO SCH (20:43)
[2017-05-09] MEDS: MIRTAZAPINE 15 MG TAB PO SCH (20:44)
[2017-05-10] VITALS (7 sets, daily range): BP systolic 130–188; BP diastolic 65–91; PULSE 56–66; RESP 14–20
[2017-05-10] MEDS: hydrALAzine 20 MG INJ IV PRN (01:48)
[2017-05-10] MEDS: DEXTROSE 5%-0.45% NACL 1,000 ML IV SCH ×3 (05:30→20:44)
[2017-05-10 05:58] LABS: BASOPHIL # 0.1 10^3/ul (0.0-0.1); EOSINOPHILS # 0.4 10^3/ul (0.0-0.5); EOSINOPHILS % 5.4 % (0.0-7.0); HEMATOCRIT 33.7 % (37.0-47.0); HEMOGLOBIN 11.3 g/dl (12.0-16.0); LYMPHOCYTES # 1.8 10^3/ul (0.8-2.9); MEAN CORPUSCULAR HEMOGLOBIN 29.3 pg (29.0-33.0); MEAN CORPUSCULAR HGB CONC 33.5 g/dl (32.0-37.0); MEAN CORPUSCULAR VOLUME 87.3 fl (82.0-101.0); MEAN PLATELET VOLUME 11.2 fl (7.4-10.4); MONOCYTES % 13.8 % (0.0-11.0); NEUTROPHILS % 54.4 % (39.0-77.0); PLATELET COUNT 302 10^3/UL (140-415); RED BLOOD COUNT 3.86 10^6/ul (4.20-5.40); RED CELL DISTRIBUTION WIDTH 13.2 % (11.5-14.5); WHITE BLOOD COUNT 7.3 10^3/ul (4.8-10.8)
[2017-05-10] MEDS: LEVOTHYROXINE 75 MCG TAB PO SCH (06:16)
[2017-05-10] MEDS: LEVOFLOXACIN 250 MG TAB PO SCH (06:16)
[2017-05-10 06:23] LABS: INR 2.27; PROTIME 25.3 Sec (12.2-14.2)
[2017-05-10 06:33] LABS: CALCIUM 8.4 mg/dl (8.4-10.2); CREATININE 0.5 mg/dl (0.44-1.00); POTASSIUM 3.7 mmol/L (3.5-5.1)
[2017-05-10] MEDS: BENAZEPRIL 40 MG TAB PO SCH (08:48)
[2017-05-10] MEDS: METOPROLOL 25 MG TAB PO SCH ×2 (08:48→20:38)
[2017-05-10] MEDS: AMLODIPINE 10 MG TAB PO SCH (08:49)
[2017-05-10] MEDS: LACTULOSE 30ML CUP PO SCH ×2 (08:50→20:45)
[2017-05-10] MEDS: AMIODARONE 200 MG TAB PO SCH (08:50)
[2017-05-10] MEDS: BISACODYL (EC) 5 MG TAB PO SCH (08:50)
[2017-05-10] MEDS: CIPROFLOXACIN 400MG/D5W 200 ML IVPB SCH (08:50)
[2017-05-10] MEDS: ANASTROZOLE 1 MG TAB PO SCH (08:58)
--- NOTE | 2017-05-10 14:55 | PN ---
Date/Time of Note Date/Time of Note DATE: 05/10/17 TIME: 14:55 Assessment/Plan VTE Prophylaxis VTE Prophylaxis Intervention: other (Warfarin) Lines/Catheters IV C[facility]ter Type (from [facility]): Mid Line Urinary Cath still in place: No Assessment/Plan Chief Complaint/Hosp Course 1. Positive urinalysis upon admission. Urine cultures negative. Will discontinue antibiotics. 2. Essential hypertension. Continue antihypertensives. 3. Hypothyroidism. Continue home Synthroid. 4. Depression. Continue Zoloft. 5. Dyslipidemia. Continue statins. 6. History of paroxysmal atrial fibrillation. Continue Coumadin. INR therapeutic. 7. Normocytic normochromic anemia. Will monitor the H&H closely. 8. History of breast cancer. Continue patient's home Arimidex. 9. History of cardiac arrest in the past. S/P trach and PEG and removal of the same. 10. Constipation. Resolved with bowel regimen. 11. DVT prophylaxis. The patient is on warfarin. 12. Nutrition. Soft diet. 13. Disposition. Discontinue antibiotics. Patient's family wants the patient to sit up in a chair. Will order physical therapy evaluation. Will also order wound care evaluation for the patient's new onset skin rash. Case discussed with Dr. Brandt. Plan of care was explained to the patient's family. Problems: Subjective 24 Hr Interval Summary Free Text/Dictation The patient remains afebrile. Exam/Review of Systems Vital Signs Vitals Vital Signs Date Time Temp Pulse Resp B/P Pulse Ox O2 Delivery O2 Flow Rate FiO2 05/10/17 13:46 98.0 60 14 147/91 96 05/09/17 08:00 Room Air Intake and Output 05/09/17 05/09/17 05/10/17 14:59 22:59 06:59 Intake Total 1000 ml 1800 ml 1000 ml Balance 1000 ml 1800 ml 1000 ml Exam General: Adequately build 61 year-old female lying in bed in no apparent distress. HEENT: Normocephalic, atraumatic. Eyes: Anicteric sclerae, conjunctivae clear. ENT: Nasal septum midline, oral mucosa moist. Neck supple, no JVD noticed. Respiratory: Bilaterally diminished breath sounds. No use of accessory muscles of respiration. No adventitious breath sounds. Cardiovascular: S1, S2 heard. Abdomen: Soft, nontender, and nondistended. Bowel sounds positive in all 4 quadrants. Genitourinary: Deferred. Extremities: No cyanosis, no clubbing, no edema. Peripheral pulses palpable. Neurologic: The patient is awake and alert. Non-verbal. Results Result Diagram: 05/10/1752105/10/17521 Results 24 hrs Laboratory Tests Test 05/10/17 05:22 White Blood Count 7.3 Red Blood Count 3.86 L Hemoglobin 11.3 L Hematocrit 33.7 L Mean Corpuscular Volume 87.3 Mean Corpuscular Hemoglobin 29.3 Mean Corpuscular Hemoglobin Concent 33.5 Red Cell Distribution Width 13.2 Platelet Count 302 Mean Platelet Volume 11.2 H Neutrophils % 54.4 Lymphocytes % 25.0 Monocytes % 13.8 H Eosinophils % 5.4 Basophils % 1.0 Nucleated Red Blood Cells % 0.0 Neutrophils # 4.0 Lymphocytes # 1.8 Monocytes # 1.0 H Eosinophils # 0.4 Basophils # 0.1 Nucleated Red Blood Cells # 0.0 Prothrombin Time 25.3 H Prothrombin Time Ratio 2.0 INR International Normalized Ratio 2.27 Sodium Level 143 Potassium Level 3.7 Chloride Level 108 Carbon Dioxide Level 27 Anion Gap 12 Blood Urea Nitrogen 2 L Creatinine 0.50 Glucose Level 113 Calcium Level 8.4 Magnesium Level 2.0 Medications Medications Current Medications Hydralazine HCl (Apresoline) 10 mg Q4H PRN IV SBP ABOVE 160 Last administered on 05/10/17 01:48; Admin Dose 10 MG; Start 05/07/17 at 02:00 Ondansetron HCl (Zofran Inj) 4 mg Q6H PRN IV NAUSEA AND/OR VOMITING; Start 05/07/17 at 02:00 Morphine Sulfate (morphine) 2 mg Q4H PRN IV PAIN; Start 05/07/17 at 02:00 Acetaminophen (Tylenol Tab) 500 mg Q4H PRN PO PAIN AND OR ELEVATED TEMP; Start 05/07/17 at 02:00 Amiodarone HCl (Cordarone) 100 mg QAM PO Last administered on 05/10/17 08:50 ; Admin Dose 100 MG; Start 05/07/17 at 09:00 Anastrozole (Arimidex) 1 mg DAILY PO Last administered on 05/10/17 08:58; Admin Dose 1 MG; Start 05/07/17 at 09:00 Benazepril HCl (Lotensin) 40 mg DAILY PO Last administered on 05/10/17 08:48 ; Admin Dose 40 MG; Start 05/07/17 at 09:00 Metoprolol Tartrate (Lopressor) 12.5 mg BID PO Last administered on 05/10/17 08:48; Admin Dose 12.5 MG; Start 05/07/17 at 09:00 Mirtazapine (Remeron) 15 mg HS PO ; Start 05/07/17 at 21:00 Sertraline HCl (Zoloft) 25 mg QHS PO Last administered on 05/09/17 20:43; Admin Dose 25 MG; Start 05/07/17 at 21:00 Warfarin Sodium 2 mg 2 mg DAILY@17 PO Last administered on 05/09/17 18:01; Admin Dose 2 MG; Start 05/07/17 at 17:00 Dextrose/Sodium Chloride (D5-1/2ns) 1,000 ml @ 100 mls/hr Q10H IV Last administered on 05/10/17 08:50; Admin Dose 100 MLS/HR; Start 05/07/17 at 07:30 Atorvastatin Calcium (Lipitor) 20 mg DAILY@21 PO Last administered on 20:43; Admin Dose 20 MG; Start 05/07/17 at 21:00 Amlodipine Besylate (Norvasc) 10 mg DAILY PO Last administered on 05/10/17 08 :49; Admin Dose 10 MG; Start 05/07/17 at 09:00 Sodium Biphosphate/ Sodium Phosphate (Fleet Enema) 133 ml DAILY PRN [place] CONSTIPATION; Start 05/08/17 at 12:30 Lactulose (Enulose) 30 gm BID PO Last administered on 05/09/17 20:42; Admin Dose 30 GM; Start 05/09/17 at 11:30 Bisacodyl (Dulcolax) 10 mg DAILY PO Last administered on 05/09/17 12:01; Admin Dose 10 MG; Start 05/09/17 at 11:30 Levofloxacin (Levaquin) 250 mg DAILY@06 PO Last administered on 05/10/17 06: 16; Admin Dose 250 MG; Start 05/09/17 at 13:00 Mineral Oil (Fleet Mineral Oil Enema) 133 ml ONCE PRN [place] CONSTIPATION; Start at 11:30 SEBLE DUEÑAS NP May 10, 2017 14:55
[2017-05-10] MEDS: CARBOXYMETHYLCELLULOSE 0.5% 0.1 ML OPH BOTH EYES SCH ×2 (16:52→20:35)
[2017-05-10] MEDS: WARFARIN 2 MG TAB PO SCH (16:52)
[2017-05-10] MEDS: SERTRALINE 50 MG TAB PO SCH (20:37)
[2017-05-10] MEDS: MIRTAZAPINE 15 MG TAB PO SCH (20:37)
[2017-05-10] MEDS: ATORVASTATIN 20 MG TAB PO SCH (20:37)
[2017-05-11 02:39] VITALS: BP 112/52; RESP 16
[2017-05-11] MEDS: LEVOTHYROXINE 75 MCG TAB PO SCH (08:47)
[2017-05-11] MEDS: CARBOXYMETHYLCELLULOSE 0.5% 0.1 ML OPH BOTH EYES SCH ×4 (08:48→21:43)
[2017-05-11] MEDS: LEVOFLOXACIN 250 MG TAB PO SCH (08:48)
[2017-05-11] MEDS: AMLODIPINE 10 MG TAB PO SCH (08:53)
[2017-05-11] MEDS: AMIODARONE 200 MG TAB PO SCH (08:54)
[2017-05-11] MEDS: BENAZEPRIL 40 MG TAB PO SCH (08:54)
[2017-05-11] MEDS: BISACODYL (EC) 5 MG TAB PO SCH (08:54)
[2017-05-11] MEDS: METOPROLOL 25 MG TAB PO SCH ×2 (08:55→21:44)
[2017-05-11] MEDS: LACTULOSE 30ML CUP PO SCH ×2 (09:00→21:43)
[2017-05-11] MEDS: ANASTROZOLE 1 MG TAB PO SCH (09:01)
[2017-05-11 09:35] VITALS: BP 126/58; PULSE 65; RESP 18
[2017-05-11] MEDS: DEXTROSE 5%-0.45% NACL 1,000 ML IV SCH ×4 (09:47→21:30)
--- NOTE | 2017-05-11 11:21 | PN ---
Date/Time of Note Date/Time of Note DATE: 05/11/17 TIME: 11:19 Assessment/Plan VTE Prophylaxis VTE Prophylaxis Intervention: SCD's Lines/Catheters IV Catheter Type (from Nrs): Mid Line Urinary Cath still in place: No Assessment/Plan Chief Complaint/Hosp Course Assessment and plan 1. UTI. Continue with antibiotics. Continue with IV hydration. Urine culture so far negative. improvng 2. Constipation. KUB showing no obstruction. Still with reported bowel movement since April 30, 2017. continue bowel regimen 3. History of right-sided breast cancer on Arimidex. Continue regimen for now. Patient for outpatient follow-up for this issue. 4. Hypertension. Continue antihypertensives and is as needed. 5. Hypothyroidism. Continue on Synthroid 6. History of atrial fibrillation. Continuing Coumadin Disposition and plan: Continue with antibiotics. Patient reportedly is more ambulatory at home. Patient has not been able to ambulate since admission. Physical therapy evaluation is pending. Anticipate discharge home with home health services if needed pending physical therapy evaluation. Will follow up. Discussed plan of care with Dr. Brandt Problems: Subjective 24 Hr Interval Summary Free Text/Dictation Comfortable at present. No specific complaints. Family remains at bedside. Exam/Review of Systems Vital Signs Vitals Vital Signs Date Time Temp Pulse Resp B/P Pulse Ox O2 Delivery O2 Flow Rate FiO2 05/11/17 09:35 98.2 65 18 126/58 95 Room Air Intake and Output 05/10/17 05/10/17 05/11/17 15:00 23:00 07:00 Intake Total 400 ml 1840 ml 1060 ml Balance 400 ml 1840 ml 1060 ml Exam Constitutional: alert, non-verbal Neck: non-tender, supple Respiratory: clear to auscultation, normal air movement Cardiovascular: regular rate and rhythm Gastrointestinal: non-tender, soft Musculoskeletal: No swelling Neurological: other (Nonverbal. Alert to verbal stimulus) Results Result Diagram: 05/10/1752105/10/17521 Medications Medications Current Medications Hydralazine HCl (Apresoline) 10 mg Q4H PRN IV SBP ABOVE 160 Last administered on 05/10/17t 01:48; Admin Dose 10 MG; Start 05/07/17 at 02:00 Ondansetron HCl (Zofran Inj) 4 mg Q6H PRN IV NAUSEA AND/OR VOMITING; Start 05/07/17 at 02:00 Morphine Sulfate (morphine) 2 mg Q4H PRN IV PAIN; Start 05/07/17 at 02:00 Acetaminophen (Tylenol Tab) 500 mg Q4H PRN PO PAIN AND OR ELEVATED TEMP; Start 05/07/17 at 02:00 Amiodarone HCl (Cordarone) 100 mg QAM PO Last administered on 05/11/17 08:54 ; Admin Dose 100 MG; Start 05/07/17 at 09:00 Anastrozole (Arimidex) 1 mg DAILY PO Last administered on 05/11/17 09:01; Admin Dose 1 MG; Start 05/07/17 at 09:00 Benazepril HCl (Lotensin) 40 mg DAILY PO Last administered on 05/11/17 08:54 ; Admin Dose 40 MG; Start 05/07/17 at 09:00 Metoprolol Tartrate (Lopressor) 12.5 mg BID PO Last administered on 05/11/17 08:55; Admin Dose 12.5 MG; Start 05/07/17 at 09:00 Mirtazapine (Remeron) 15 mg HS PO Last administered on 05/10/17 20:37; Admin Dose 15 MG; Start 05/07/17 at 21:00; Status Future Hold Sertraline HCl (Zoloft) 25 mg QHS PO Last administered on 05/10/17 20:37; Admin Dose 25 MG; Start 05/07/17 at 21:00 Warfarin Sodium 2 mg 2 mg DAILY@17 PO Last administered on 05/10/17 16:52; Admin Dose 2 MG; Start 05/07/17 at 17:00 Dextrose/Sodium Chloride (D5-1/2ns) 1,000 ml @ 100 mls/hr Q10H IV Last administered on 05/11/17 09:47; Admin Dose 100 MLS/HR; Start 05/07/17 at 07:30 Atorvastatin Calcium (Lipitor) 20 mg DAILY@21 PO Last administered on 20:37; Admin Dose 20 MG; Start 05/07/17 at 21:00 Amlodipine Besylate (Norvasc) 10 mg DAILY PO Last administered on 05/11/17 08 :53; Admin Dose 10 MG; Start 05/07/17 at 09:00 Sodium Biphosphate/ Sodium Phosphate (Fleet Enema) 133 ml DAILY PRN [place] CONSTIPATION; Start 05/08/17 at 12:30 Lactulose (Enulose) 30 gm BID PO Last administered on 05/09/17 20:42; Admin Dose 30 GM; Start 05/09/17 at 11:30 Bisacodyl (Dulcolax) 10 mg DAILY PO Last administered on 05/11/17 08:54; Admin Dose 10 MG; Start 05/09/17 at 11:30 Levofloxacin (Levaquin) 250 mg DAILY@06 PO Last administered on 05/11/17 08: 48; Admin Dose 250 MG; Start 05/09/17 at 13:00 Mineral Oil (Fleet Mineral Oil Enema) 133 ml ONCE PRN [place] CONSTIPATION; Start at 11:30 Eye Lubricant (Refresh Plus) 1 drop QID BOTH EYES Last administered on 08:48; Admin Dose 1 DROP; Start 05/10/17 at 17:00 IDALIA ROMAN May 11, 2017 11:21
[2017-05-11 12:07] LABS: INR 2.16; PROTIME 24.3 Sec (12.2-14.2); PT RATIO 1.9
[2017-05-11 12:15] LABS: BASOPHIL # 0.1 10^3/ul (0.0-0.1); EOSINOPHILS # 0.5 10^3/ul (0.0-0.5); EOSINOPHILS % 8.1 % (0.0-7.0); HEMATOCRIT 33.8 % (37.0-47.0); LYMPHOCYTES # 1.3 10^3/ul (0.8-2.9); LYMPHOCYTES % 22.1 % (15.0-51.0); MEAN CORPUSCULAR HEMOGLOBIN 28.9 pg (29.0-33.0); MEAN CORPUSCULAR HGB CONC 32.5 g/dl (32.0-37.0); MEAN CORPUSCULAR VOLUME 88.9 fl (82.0-101.0); MEAN PLATELET VOLUME 11.3 fl (7.4-10.4); MONOCYTE # 0.8 10^3/ul (0.3-0.9); MONOCYTES % 14.5 % (0.0-11.0); NEUTROPHIL # 3.1 10^3/ul (1.6-7.5); NEUTROPHILS % 53.8 % (39.0-77.0); PLATELET COUNT 303 10^3/UL (140-415); RED CELL DISTRIBUTION WIDTH 13.2 % (11.5-14.5); WHITE BLOOD COUNT 5.8 10^3/ul (4.8-10.8)
[2017-05-11 12:19] LABS: CALCIUM 7.9 mg/dl (8.4-10.2); CREATININE 0.57 mg/dl (0.44-1.00); POTASSIUM 3.2 mmol/L (3.5-5.1)
[2017-05-11] MEDS ORDERED: KETOROLAC 30 MG INJ IV SCH (13:00)
[2017-05-11 13:09] LABS: PHOSPHORUS 3.4 mg/dl (2.5-4.9)
[2017-05-11 14:20] VITALS: BP 136/60; RESP 14
[2017-05-11] MEDS ORDERED: POTASSIUM CHLORIDE (SR) 20 MEQ TAB PO STA (14:33)
[2017-05-11] MEDS: WARFARIN 2 MG TAB PO SCH (17:17)
[2017-05-11 19:28] VITALS: BP 120/58; RESP 16
[2017-05-11] MEDS: SERTRALINE 50 MG TAB PO SCH (21:43)
[2017-05-11] MEDS: ATORVASTATIN 20 MG TAB PO SCH (21:43)
[2017-05-12 01:47] VITALS: BP 132/60; RESP 16
[2017-05-12] MEDS: DEXTROSE 5%-0.45% NACL 1,000 ML IV SCH ×2 (05:34→07:30)
[2017-05-12 06:11] LABS: BASOPHIL # 0.1 10^3/ul (0.0-0.1); BASOPHILS % 0.9 % (0.0-2.0); EOSINOPHILS # 0.4 10^3/ul (0.0-0.5); EOSINOPHILS % 6.9 % (0.0-7.0); HEMATOCRIT 29.4 % (37.0-47.0); HEMOGLOBIN 9.7 g/dl (12.0-16.0); LYMPHOCYTES # 1.8 10^3/ul (0.8-2.9); LYMPHOCYTES % 31.4 % (15.0-51.0); MEAN CORPUSCULAR HEMOGLOBIN 29.1 pg (29.0-33.0); MEAN CORPUSCULAR VOLUME 88.3 fl (82.0-101.0); MEAN PLATELET VOLUME 11.2 fl (7.4-10.4); MONOCYTE # 0.7 10^3/ul (0.3-0.9); MONOCYTES % 11.9 % (0.0-11.0); NEUTROPHIL # 2.8 10^3/ul (1.6-7.5); PLATELET COUNT 233 10^3/UL (140-415); RED BLOOD COUNT 3.33 10^6/ul (4.20-5.40); RED CELL DISTRIBUTION WIDTH 13.3 % (11.5-14.5); WHITE BLOOD COUNT 5.8 10^3/ul (4.8-10.8)
[2017-05-12] MEDS: LEVOTHYROXINE 75 MCG TAB PO SCH (06:19)
[2017-05-12] MEDS: LEVOFLOXACIN 250 MG TAB PO SCH (06:19)
[2017-05-12 06:32] LABS: CALCIUM 7.5 mg/dl (8.4-10.2); CREATININE 0.61 mg/dl (0.44-1.00); POTASSIUM 3.7 mmol/L (3.5-5.1)
[2017-05-12 07:37] VITALS: BP 133/62; RESP 18
[2017-05-12] MEDS: BISACODYL (EC) 5 MG TAB PO SCH (08:35)
[2017-05-12] MEDS: CARBOXYMETHYLCELLULOSE 0.5% 0.1 ML OPH BOTH EYES SCH ×2 (08:35→13:50)
[2017-05-12] MEDS: AMLODIPINE 10 MG TAB PO SCH (08:36)
[2017-05-12] MEDS: AMIODARONE 200 MG TAB PO SCH (08:36)
[2017-05-12] MEDS: METOPROLOL 25 MG TAB PO SCH (08:37)
[2017-05-12] MEDS: BENAZEPRIL 40 MG TAB PO SCH (08:37)
[2017-05-12] MEDS: LACTULOSE 30ML CUP PO SCH (08:38)
[2017-05-12] MEDS: ANASTROZOLE 1 MG TAB PO SCH (08:40)
--- NOTE | 2017-05-12 13:01 | PN ---
Date/Time of Note Date/Time of Note DATE: 05/12/17 TIME: 12:55 Assessment/Plan VTE Prophylaxis VTE Prophylaxis Intervention: other Lines/Catheters IV Catheter Type (from Nrsg): Mid-line Urinary Cath still in place: No Assessment/Plan Assessment/Plan 1. UTI, improving, on levaquin 2. Weakness, awaiting for PT, patient will go home with PT 3. History of right-sided breast cancer on Arimidex, stable 4. Hypertension. Controlled 5. Hypothyroidism. Continue on Synthroid 6. History of atrial fibrillation. Continuing Coumadin Subjective 24 Hr Interval Summary Free Text/Dictation weak, not out of bed yet. no pain, no distress Exam/Review of Systems Vital Signs Vitals Vital Signs Date Time Temp Pulse Resp B/P Pulse Ox O2 Delivery O2 Flow Rate FiO2 05/12/17 07:37 97.9 64 18 133/62 91 05/11/17 09:35 Room Air Intake and Output 05/11/17 05/11/17 05/12/17 14:59 22:59 06:59 Intake Total 1000 ml 1110 ml 1150 ml Balance 1000 ml 1110 ml 1150 ml Exam Constitutional: alert, oriented, well developed Psych: nl mood/affect, no complaints Head: atraumatic, normocephalic Eyes: EOMI, PERRL, nl conjunctiva, nl lids ENMT: nl external ears & nose, nl lips & teeth, nl nasal mucosa & septum Neck: non-tender, supple Respiratory: clear to auscultation, normal air movement, No congested cough, No crackles/rales, No diminished breath sounds, No intercostal retraction, No labored breathing, No other, No respirations, No tactile fremitus, No wheezing Cardiovascular: irregular rhythm Gastrointestinal: nl liver, spleen, non-tender, soft, No ascites, No bowel sounds, No distended, No firm, No hepatomegaly, No mass , No other, No rebound or guarding, No splenomegaly, No surgical scars, No tender Musculoskeletal: nl extremities to inspection Extremities: normal pulses, No calf tenderness, No clubbing, No cyanosis, No edema, No other, No palpable cord, No pitting pedal edema, No tenderness Neurological: BILLING MACHINE OPERATOR II-XII intact, nl mental status, nl speech, nl strength Skin: nl turgor Results Result Diagram: 05/12/17 0533 05/12/17 0533 Results 24 hrs Laboratory Tests Test 05/12/17 05:33 White Blood Count 5.8 Red Blood Count 3.33 L Hemoglobin 9.7 L Hematocrit 29.4 L Mean Corpuscular Volume 88.3 Mean Corpuscular Hemoglobin 29.1 Mean Corpuscular Hemoglobin Concent 33.0 Red Cell Distribution Width 13.3 Platelet Count 233 # Mean Platelet Volume 11.2 H Neutrophils % 48.0 Lymphocytes % 31.4 Monocytes % 11.9 H Eosinophils % 6.9 Basophils % 0.9 Nucleated Red Blood Cells % 0.0 Neutrophils # 2.8 Lymphocytes # 1.8 Monocytes # 0.7 Eosinophils # 0.4 Basophils # 0.1 Nucleated Red Blood Cells # 0.0 Sodium Level 142 Potassium Level 3.7 Chloride Level 111 H Carbon Dioxide Level 28 Anion Gap 7 L Blood Urea Nitrogen 3 L Creatinine 0.61 Glucose Level 96 Calcium Level 7.5 L Medications Medications Current Medications Hydralazine HCl (Apresoline) 10 mg Q4H PRN IV SBP ABOVE 160 Last administered on 05/10/17 01:48; Admin Dose 10 MG; Start 05/07/17 at 02:00 Ondansetron HCl (Zofran Inj) 4 mg Q6H PRN IV NAUSEA AND/OR VOMITING; Start 05/07/17 at 02:00 Morphine Sulfate (morphine) 2 mg Q4H PRN IV PAIN; Start 05/07/17 at 02:00 Acetaminophen (Tylenol Tab) 500 mg Q4H PRN PO PAIN AND OR ELEVATED TEMP Last administered on 05/11/17 21:51; Admin Dose 500 MG; Start 05/07/17 at 02:00 Amiodarone HCl (Cordarone) 100 mg QAM PO Last administered on 05/12/17 08:36 ; Admin Dose 100 MG; Start 05/07/17 at 09:00 Anastrozole (Arimidex) 1 mg DAILY PO Last administered on 05/12/17 08:40; Admin Dose 1 MG; Start 05/07/17 at 09:00 Benazepril HCl (Lotensin) 40 mg DAILY PO Last administered on 05/12/17 08:37 ; Admin Dose 40 MG; Start 05/07/17 at 09:00 Metoprolol Tartrate (Lopressor) 12.5 mg BID PO Last administered on 05/12/17 08:37; Admin Dose 12.5 MG; Start 05/07/17 at 09:00 Mirtazapine (Remeron) 15 mg HS PO Last administered on 05/10/17 20:37; Admin Dose 15 MG; Start 05/07/17 at 21:00; Status Future Hold Sertraline HCl (Zoloft) 25 mg QHS PO Last administered on 05/11/17 21:43; Admin Dose 25 MG; Start 05/07/17 at 21:00 Warfarin Sodium 2 mg 2 mg DAILY@17 PO Last administered on 05/11/17 17:17; Admin Dose 2 MG; Start 05/07/17 at 17:00 Dextrose/Sodium Chloride (D5-1/2ns) 1,000 ml @ 100 mls/hr Q10H IV Last administered on 05/12/17 05:34; Admin Dose 100 MLS/HR; Start 05/07/17 at 07:30 Atorvastatin Calcium (Lipitor) 20 mg DAILY@21 PO Last administered on 21:43; Admin Dose 20 MG; Start 05/07/17 at 21:00 Amlodipine Besylate (Norvasc) 10 mg DAILY PO Last administered on 05/12/17 08 :36; Admin Dose 10 MG; Start 05/07/17 at 09:00 Sodium Biphosphate/ Sodium Phosphate (Fleet Enema) 133 ml DAILY PRN [place] CONSTIPATION; Start 05/08/17 at 12:30 Lactulose (Enulose) 30 gm BID PO Last administered on 05/12/17 08:38; Admin Dose 30 GM; Start 05/09/17 at 11:30 Bisacodyl (Dulcolax) 10 mg DAILY PO Last administered on 05/12/17 08:35; Admin Dose 10 MG; Start 05/09/17 at 11:30 Levofloxacin (Levaquin) 250 mg DAILY@06 PO Last administered on 05/12/17 06: 19; Admin Dose 250 MG; Start 05/09/17 at 13:00 Mineral Oil (Fleet Mineral Oil Enema) 133 ml ONCE PRN [place] CONSTIPATION; Start at 11:30 Eye Lubricant (Refresh Plus) 1 drop QID BOTH EYES Last administered on 08:35; Admin Dose 1 DROP; Start 05/10/17 at 17:00 ARACELI PRETTY MD May 12, 2017 13:01
--- NOTE | 2017-05-12 13:25 | DS ---
Date/Time of Note Date/Time of Note DATE: 05/12/17 TIME: 13:22 Discharge Summary Admission/Discharge Info Admit Date/Time May 06, 2017 at 23:21 Discharge Date/Time Discharge Diagnosis 1. UTI, treated 2. Dehydration, resolved 3. History of right-sided breast cancer on Arimidex, stable 4. Hypertension. Controlled 5. Hypothyroidism. Continue on Synthroid 6. History of atrial fibrillation. Continuing Coumadin Patient Condition: Stable Hx of Present Illness This is a 61-year-old female with a history of hypertension, breast cancer status post right sided mastectomy, on Arimidex, paroxysmal atrial fibrillation , hypothyroidism, history of cardiac arrest in 2008 resulting in anoxic brain injury, history of prior tracheostomy and PEG tube placement. Patient was brought to ER by family because of generalized weakness, vomiting, decreased p.o. intake and constipation. Patient has anoxic brain injury as a result of the cardiac arrest in 2008 and as a result she is entirely dependent with her family. Her daughter who is at the bedside stated that starting about a week ago, they noticed that she was becoming more lethargic and yesterday she has had 2 episodes of nonbloody nonbilious vomiting. She also has not had a bowel movement for about 6 days. Daughter also noticed foul-smelling urine. When she presented to the ER, blood pressure was 208/87 with a heart rate of 56. She has been afebrile. CBC and CMP was in acceptable range. Chest x-ray was no acute cardiopulmonary disease. Urinalysis was not done in the ER. Hospital Course Urine WBC 7. She is treated with levaquin for UTI, symptoms improved. She finished 7 days of antibiotics, no antibiotics needed on discharge. Family states patient is chronically weak and they have caregiver at home. They declines home PT or SNF. Home Meds Active Scripts Metoprolol Tartrate* (Lopressor*) 25 Mg Tab, 12.5 MG PO BID, #60 TAB Prov:COCO COBOS MD 12/16/15 Reported Medications Levothyroxine Sodium* (Levothyroxine Sodium*) 75 Mcg Tablet, 75 MCG PO BEFORE BREAKFAST, #30 TAB 05/06/17 Acetaminophen* (Acetaminophen*) 500 MG Extra Strength Tablet, 500 MG PO Q4H Y for PAIN AND OR ELEVATED TEMP, TAB 05/06/17 Mirtazapine* (Mirtazapine*) 15 Mg Tablet, 15 MG PO HS, TAB 05/06/17 Amiodarone Hcl* (Amiodarone Hcl*) 200 Mg Tablet, 100 MG PO QAM, #30 TAB TAKE 1/2 TABLET PO DAILY 05/06/17 Warfarin Sodium* (Coumadin*) 2 Mg Tablet, 2 MG PO QAM, TAB 12/15/15 Simvastatin* (Zocor*) 40 Mg Tablet, 40 MG PO QHS, #30 TAB 12/15/15 Sertraline Hcl* (Sertraline Hcl*) 25 Mg Tablet, 25 MG PO QHS 07/18/13 Anastrozole* (Arimidex*) 1 Mg Tablet, 1 MG PO DAILY 07/18/13 Benazepril Hcl* (Lotensin*) 40 Mg Tablet, 40 MG PO DAILY 07/18/13 Discontinued Reported Medications Mirtazapine* (Mirtazapine*) 7.5 Mg Tablet, 7.5 MG PO HS, TAB 12/15/15 Levothyroxine Sodium (Levothroid) 50 Mcg Tablet, 50 MCG PO AC BREAKFAST 07/18/13 Discontinued Scripts Cephalexin* (Cephalexin*) 500 Mg Capsule, 500 MG PO Q8, #21 CAP Prov:COCO COBOS MD 12/16/15 Amiodarone Hcl* (Amiodarone Hcl*) 100 Mg Tablet, 100 MG PO DAILY, #30 TAB Prov:COCO COBOS MD 12/16/15 Follow-up Plan PCP in one week Primary Care Provider Jose A Garduno Pending Labs Laboratory Tests Test 05/12/17 05:33 White Blood Count 5.810^3/ul (4.8-10.8) Red Blood Count 3.3310^6/ul (4.20-5.40) Hemoglobin 9.7g/dl (12.0-16.0) Hematocrit 29.4% (37.0-47.0) Mean Corpuscular Volume 88.3fl (82.0-101.0) Mean Corpuscular Hemoglobin 29.1pg (29.0-33.0) Mean Corpuscular Hemoglobin Concent 33.0g/dl (32.0-37.0) Red Cell Distribution Width 13.3% (11.5-14.5) Platelet Count 31115^3/UL (140-415) Mean Platelet Volume 11.2fl (7.4-10.4) Neutrophils % 48.0% (39.0-77.0) Lymphocytes % 31.4% (15.0-51.0) Monocytes % 11.9% (0.0-11.0) Eosinophils % 6.9% (0.0-7.0) Basophils % 0.9% (0.0-2.0) Nucleated Red Blood Cells % 0.0/100WBC (0.0-0.0) Neutrophils # 2.810^3/ul (1.6-7.5) Lymphocytes # 1.810^3/ul (0.8-2.9) Monocytes # 0.710^3/ul (0.3-0.9) Eosinophils # 0.410^3/ul (0.0-0.5) Basophils # 0.110^3/ul (0.0-0.1) Nucleated Red Blood Cells # 0.010^3/ul (0.0-0.0) Sodium Level 142mmol/L (135-144) Potassium Level 3.7mmol/L (3.5-5.1) Chloride Level 111mmol/L (97-110) Carbon Dioxide Level 28mmol/L (21-31) Anion Gap 7 (8-16) Blood Urea Nitrogen 3mg/dl (7-20) Creatinine 0.61mg/dl (0.44-1.00) Glucose Level 96mg/dl (70-220) Calcium Level 7.5mg/dl (8.4-10.2) ARACELI PRETTY MD May 12, 2017 13:25
[2017-05-12 14:40] VITALS: BP 129/62; RESP 16
== END 2017-05-12 16:35 | disposition home or self-care (01) | DRG 690 ==
LOC: E/R 16:46 → MS2 23:21
PROVIDERS: ADMIT Internal Medicine; ATTEND Internal Medicine
DX: N39.0 Urinary tract infection, site not specified (principal); G93.1 Anoxic brain damage, not elsewhere classified; Z86.74 Personal history of sudden cardiac arrest; I48.0 Paroxysmal atrial fibrillation; C50.911 Malignant neoplasm of unspecified site of right female breast; I10 Essential (primary) hypertension; E86.0 Dehydration; F32.9 Major depressive disorder, single episode, unspecified; E03.9 Hypothyroidism, unspecified; K59.00 Constipation, unspecified; Z79.01 Long term (current) use of anticoagulants; Z88.0 Allergy status to penicillin; Z79.811 Long term (current) use of aromatase inhibitors; D64.9 Anemia, unspecified; E78.5 Hyperlipidemia, unspecified
CPT/HCPCS: 36415; 71010; 74000; 76856; 80048; 80053; 81001; 83605; 83735; 84100; 84484; 85025; 85610; 85730; 87040; 87086; 90686; 92526; 92610; 93005; 96374; 96375; 97163; A4310; J0360; J0744; J2930; J3370; J7030; J7042

== ENCOUNTER 2017-08-04 10:31 | Emergency (ER) | END 2017-08-04 15:36 | disposition home or self-care (01) ==

== ENCOUNTER 2017-08-11 19:24 | Inpatient (IN) | END 2017-08-13 18:45 | DRG 871 ==

== ENCOUNTER 2017-08-14 00:23 | Observation (INO) | END 2017-08-14 18:39 ==